=== PATIENT | male | born 1990 | race Hispanic/Latino ===

== ENCOUNTER 2017-05-30 19:24 | Emergency (ER) | payer BC, OTHER ==
[2017-05-30] MEDS ORDERED: AMOXICILLIN/POTASSIUM CLAV 875-125 TABLET PO ONE (19:48)
[2017-05-30] MEDS ORDERED: HYDROCODONE/ACETAMINOPHEN 5/325 MG TAB ONE ×2 (19:49→21:51)
[2017-05-30] MEDS ORDERED: BUPIVACAINE/PF 0.5% 30ML VIAL ONE (21:05)
[2017-05-30] MEDS ORDERED: LIDOCAINE HCL 1% MDV 50ML VIAL ONE (21:05)
== END 2017-05-30 22:07 | disposition home or self-care (01) ==
LOC: EDH 19:24
DX: S61.332A Puncture wound without foreign body of right middle finger with damage to nail, initial encounter (principal); S61.330A Puncture wound without foreign body of right index finger with damage to nail, initial encounter; Z72.0 Tobacco use; W26.8XXA Contact with other sharp object(s), not elsewhere classified, initial encounter; Y93.89 Activity, other specified; Y92.098 Other place in other non-institutional residence as the place of occurrence of the external cause; Y99.8 Other external cause status
CPT/HCPCS: 73130; 99284; J3490 ×2

== ENCOUNTER 2017-09-10 11:37 | Emergency (ER) | payer SELFPAY ==
[2017-09-10] MEDS ORDERED: KETOROLAC TROMETHAMINE 30MG/ML ONE (12:07)
[2017-09-10] MEDS ORDERED: DEXAMETHASONE SOD PHOSPHATE 10MG/ML 1ML VIAL ONE (12:07)
[2017-09-10] MEDS ORDERED: CEFTRIAXONE SODIUM 1 GM ONE (13:45)
== END 2017-09-10 14:24 | disposition home or self-care (01) ==
LOC: EDH 11:37
DX: H60.8X2 Other otitis externa, left ear (principal); J02.9 Acute pharyngitis, unspecified; Z87.891 Personal history of nicotine dependence
CPT/HCPCS: 70480; 96372 ×3; 99284; J0696; J1100; J1885

== ENCOUNTER → 2020-06-11 | Outpatient (CLI) | payer SELFPAY | END | disposition home or self-care (01) | LOC: RAH 11:02 | PROVIDERS: ATTEND Nurse Practitioner Family | DX: Z13.6 Encounter for screening for cardiovascular disorders (principal) | CPT/HCPCS: 75571 ==